=== PATIENT | female | born 1935 | race Caucasian/White ===

== ENCOUNTER 2017-02-04 09:46 | Emergency (ER) | payer OTHER ==
[~2017-02-04] VITALS: Ht 165.1 cm; Wt 84.8 kg
[~2017-02-04 09:46] MED LIST: LISINOPRIL-HCT1 EAC1; NORCO 5-325 TA1 EACH PO; PRILOSEC 10MG C10 MG
[2017-02-04] MEDS ORDERED: ACETAMINOPHEN-1 EAC1 PO (11:43)
[2017-02-04 12:25] VITALS: BP 128/75
== END 2017-02-04 12:25 | disposition home or self-care (01) ==
LOC: ER 09:46
DX: S63.591A Other specified sprain of right wrist, initial encounter (principal); S40.011A Contusion of right shoulder, initial encounter; S50.01XA Contusion of right elbow, initial encounter; I10 Essential (primary) hypertension; Z96.653 Presence of artificial knee joint, bilateral; Z96.643 Presence of artificial hip joint, bilateral; Z88.1 Allergy status to other antibiotic agents; Z88.8 Allergy status to other drugs, medicaments and biological substances; W22.01XA Walked into wall, initial encounter; Y93.01 Activity, walking, marching and hiking; Y92.89 Other specified places as the place of occurrence of the external cause; Y99.8 Other external cause status

== ENCOUNTER 2017-11-21 12:06 | Emergency (ER) | payer OTHER ==
[~2017-11-21] VITALS: Ht 162.6 cm; Wt 83.9 kg
[~2017-11-21 12:06] MED LIST changes: +ACETAMINOPHEN-1 EAC1 PO
[2017-11-21 14:19] LABS: ABSOLUTE NEUTROPHILS 12.6 thou/uL (1.4-8.2); BASOPHILS 0.5 % (0.0-2.0); EOSINOPHILS 0.3 % (0.0-3.0); HEMATOCRIT 42.8 % (37.0-47.0); HEMOGLOBIN 14.6 gm/dL (12.0-15.0); LYMPHOCYTES 12.3 % (24.0-44.0); MCH 29.9 pg (26.0-34.0); MCHC 34.2 g/dL (28.0-37.0); MCV 87.5 fL (80.0-100.0); MONOCYTES 5.2 % (1.0-8.0); PLATELET COUNT 313 thou/uL (150-400); POLYS 81.7 % (36.0-66.0); RBC 4.89 mil/uL (4.20-5.00); RDW 14.2 % (10.5-14.5); WBC 15.4 thou/uL (4.0-11.0)
[2017-11-21 14:30] LABS: CALCIUM 9.6 mg/dL (8.5-10.1); INR 1.1; POTASSIUM 3.6 mmol/L (3.5-5.1); PROTIME 10.9 Seconds (9.3-11.4)
[2017-11-21] MEDS ORDERED: NORCO 5-325 TA1 EACH PO (16:29)
== END 2017-11-21 16:45 | disposition home or self-care (01) ==
LOC: ER 12:06
PROVIDERS: Emergency Medicine
DX: S62.101A Fracture of unspecified carpal bone, right wrist, initial encounter for closed fracture (principal); S42.391A Other fracture of shaft of right humerus, initial encounter for closed fracture; I10 Essential (primary) hypertension; Z96.643 Presence of artificial hip joint, bilateral; Z96.653 Presence of artificial knee joint, bilateral; Z88.1 Allergy status to other antibiotic agents; W00.0XXA Fall on same level due to ice and snow, initial encounter; Y93.89 Activity, other specified; Y92.89 Other specified places as the place of occurrence of the external cause; Y99.8 Other external cause status